=== PATIENT | female | born 1975 | race Caucasian/White ===

== ENCOUNTER 2016-10-03 18:04 | Emergency (ER) | payer OTHER ==
[~2016-10-03] VITALS: Ht 162.6 cm; Wt 54.4 kg
[2016-10-03 18:27] VITALS: BP 115/57
[2016-10-03 18:42] LABS: BILIRUBIN,URINE NEGATIVE (NEG); GLUCOSE,URINE NEGATIVE (NEG); NITRITE,URINE POSITIVE (NEG); PROTEIN,URINE 30 mg/dL (NEG-TRACE); UROBILINOGEN,URINE 0.2 mg/dL (0.2 mg/dL)
[2016-10-03 18:52] LABS: BACTERIA,URINE FEW /HPF (0-FEW); SQUAMOUS EPITHELIAL CELL,UR FEW /LPF; WBC,URINE 20-40 /HPF (0-4)
[2016-10-03] MEDS ORDERED: IBUPROFEN 800 MG TABLET. PO ONE (19:00)
[2016-10-03] MEDS ORDERED: ONDANSETRON ODT 4 MG TAB.RAPDIS. PO ONE (19:00)
--- NOTE | 2016-10-03 19:13 | PHYS DOC ---
Past Medical History Past Medical History: Hypothyroid Past Surgical History: Tubal ligation Alcohol Use: Occasionally Drug Use: None Adult General Chief Complaint Chief Complaint: FLU SYMPTOM HPI HPI Patient is a 41 year old female who presents with body aches, for 1-1/2 weeks, she stated for the last couple days she's had odorous urine and a fever yesterday. Patient denies any urgency frequency dysuria. She states she has previous remote history of a kidney stone. Review of Systems Review of Systems Constitutional: Body aches and fever Eyes: Denies change in visual acuity, redness, or eye pain [] HENT: Denies nasal congestion or sore throat [] Respiratory: Denies cough or shortness of breath [] Cardiovascular: No additional information not addressed in HPI [] GI: Denies abdominal pain, nausea, vomiting, bloody stools or diarrhea [] : Odorous urine Musculoskeletal: Denies back pain or joint pain [] Integument: Denies rash or skin lesions [] Neurologic: Denies headache, focal weakness or sensory changes [] Endocrine: Denies polyuria or polydipsia [] Current Medications Current Medications Current Medications Medications (Trade) Dose Ordered Sig/Manuel Start Time Stop Time Status Last Admin Dose Admin Ciprofloxacin (Cipro) 500 mg 1X ONCE 10/03/16 19:15 10/03/16 19:16 Ibuprofen (Motrin) 800 mg 1X ONCE 10/03/16 19:00 10/03/16 19:01 DC 10/03/16 19:03 800 MG Ondansetron HCl (Zofran Odt) 4 mg 1X ONCE 10/03/16 19:00 10/03/16 19:01 DC 10/03/16 19:03 4 MG Phenazopyridine HCl (Pyridium) 200 mg 1X ONCE 10/03/16 19:15 10/03/16 19:16 Allergies Allergies Allergies Coded Allergies Type Severity Reaction Last Updated Verified wheat Allergy Intermediate 08/31/15 Yes Physical Exam Physical Exam Constitutional: Well developed, well nourished, no acute distress, non-toxic appearance. [] HENT: Normocephalic, atraumatic, bilateral external ears normal, oropharynx moist, no oral exudates, nose normal. [] Eyes: PERRLA, EOMI, conjunctiva normal, no discharge. [] Neck: Normal range of motion, no tenderness, supple, no stridor. [] Cardiovascular:Heart rate regular rhythm, no murmur [] Lungs & Thorax: Bilateral breath sounds clear to auscultation [] Abdomen: Bowel sounds normal, soft, no tenderness, no masses, no pulsatile masses. [] Skin: Warm, dry, no erythema, no rash. [] Back: No tenderness,slight bilateral CVA tenderness. [] Extremities: No tenderness, no cyanosis, no clubbing, ROM intact, no edema. [] Neurologic: Alert and oriented X 3, normal motor function, normal sensory function, no focal deficits noted. [] Psychologic: Affect normal, judgement normal, mood normal. [] Current Patient Data Vital Signs Vital Signs Date Time Temp Pulse Resp B/P (MAP) Pulse Ox O2 Delivery O2 Flow Rate FiO2 10/03/16 18:27 98.4 98 16 115/57 (76) 99 Room Air 98.4 Lab Values Laboratory Tests Test 10/03/16 18:23 Urine Collection Type Unknown Urine Color Yellow Urine Clarity Cloudy Urine pH 6.0 Urine Specific [place] 1.020 Urine Protein 30 mg/dL (NEG-TRACE) Urine Glucose (UA) Negative mg/dL (NEG) Urine Ketones (Stick) 40 mg/dL (NEG) Urine Blood Large (NEG) Urine Nitrite Positive (NEG) Urine Bilirubin Negative (NEG) Urine Urobilinogen Dipstick 0.2 mg/dL (0.2 mg/dL) Urine Leukocyte Esterase Large (NEG) Urine RBC 1-2 /HPF (0-2) Urine WBC 20-40 /HPF (0-4) Urine Squamous Epithelial Cells Few /LPF Urine Bacteria Few /HPF (0-FEW) Urine Mucus Slight /LPF EKG EKG [] Radiology/Procedures Radiology/Procedures [] Course & Med Decision Making Course & Med Decision Making Pertinent Labs and Imaging studies reviewed. (See chart for details) Patient is in the ED with symptoms suspicious of kidney or urinary tract infection. Patient denies any hematuria though she states she is currently on her menstrual cycle. She has remote history of kidney stones. Her urine was positive for UTI. She was discharged on Cipro and Pyridium and Ultram. She was instructed to push fluids and follow-up with her own doctor in 1-2 weeks. Dragon Disclaimer Dragon Disclaimer This electronic medical record was generated, in whole or in part, using a voice recognition dictation system. Departure Departure Impression: Primary Impression: Pyelonephritis Disposition: 01 HOME, SELF-CARE Condition: STABLE Referrals: NO PCP (PCP) Follow-up with your doctor in one week Patient Instructions: Pyelonephritis, Adult Additional Instructions: You were seen for a kidney infection. Please complete your antibiotics. Push fluids. Take the prescribed pain medicine as needed. Follow-up with your primary care doctor in the next 7 days. Come back to the ED if symptoms worsen. Scripts Phenazopyridine Hcl (PYRIDIUM) 100 Mg Tablet 100 MG PO TID, #8 TAB Prov: RACHELE HEWITT APRN 10/03/16 Ondansetron (ZOFRAN ODT) 4 Mg Tab.rapdis 1 TAB SL Q8HRS, #15 TAB Prov: RACHELE HEWITT APRN 10/03/16 Tramadol Hcl (ULTRAM) 50 Mg Tablet 1 TAB PO Q6HRS, #30 TAB Prov: RACHELE HEWITT APRN 17 Ciprofloxacin Hcl (CIPRO) 500 Mg Tablet 1 TAB PO BID, #13 TAB Prov: RACHELE HEWITT APRN 10/03/16 RACHELE HEWITT APRN Oct 03, 2016 19:13
[2016-10-03] MEDS ORDERED: CIPROFLOXACIN HCL 250 MG TABLET. PO ONE (19:15)
[2016-10-03] MEDS ORDERED: PHENAZOPYRIDINE 200 MG TABLET. PO ONE (19:15)
[2016-10-03] MEDS ORDERED: TRAM-48 PO (19:19)
[2016-10-03] MEDS ORDERED: ONDA4TAB10 SL (19:19)
[2016-10-03] MEDS ORDERED: CIPR500T94 PO (19:19)
[2016-10-03] MEDS ORDERED: PHEN100T82 PO (19:19)
== END 2016-10-03 20:00 | disposition home or self-care (01) ==
LOC: ER 18:04
DX: N12 Tubulo-interstitial nephritis, not specified as acute or chronic (principal); E03.9 Hypothyroidism, unspecified; Z87.442 Personal history of urinary calculi; Z91.018 Allergy to other foods; Z98.51 Tubal ligation status
CPT/HCPCS: 81001; 87086; 99284; Q0162

== ENCOUNTER 2019-04-15 03:21 | Emergency (ER) | payer OTHER ==
[~2019-04-15 03:21] MED LIST: CIPR500T94 PO; ONDA4TAB10 SL; PHEN100T82 PO; TRAM-48 PO
--- NOTE | 2019-04-15 03:55 | PHYS DOC ---
Past Medical History Past Medical History: Hypothyroid Past Surgical History: Tubal ligation Alcohol Use: Occasionally Drug Use: None Adult General Chief Complaint Chief Complaint: ABDOMINAL PAIN HPI HPI 43-year-old female presents to emergency Department complaints of abdominal pain patient describes the pain suprapubically, right lower quadrant. She describes as achy sensation intermittently sharp. She states she's had some spotting on March 10 however has not had anything since. Last menstrual period March 21, 2019 she describes chills, nausea, no diarrhea, history of urinary tract infections currently on prophylactic therapy. She doesn't a history of ovary and cysts. She describes vaginal discharge on March 10 however has not had any since that time. Nothing makes her pain better. She states unable to sleep given the continued abdominal discomfort. Review of Systems Review of Systems Constitutional: Intermittent fevers, subjective At that Respiratory: Denies cough or shortness of breath [] Cardiovascular: No additional information not addressed in HPI [] GI: Positive abdominal pain, nausea, no vomiting, bloody stools or diarrhea [] : Positive dysuria, no hematuria [] Musculoskeletal: Denies back pain or joint pain [] Neurologic: Denies headache, focal weakness or sensory changes [] All other systems were reviewed and found to be within normal limits, except as documented in this note. Current Medications Current Medications Current Medications Medications (Trade) Dose Ordered Sig/[facility] Start Time Stop Time Status Last Admin Dose Admin Ceftriaxone Sodium (Rocephin) 1 gm 1X ONCE 04/15/19 05:15 04/15/19 05:16 DC 04/15/19 05:24 1 GM Ketorolac Tromethamine (Toradol 30mg Vial) 30 mg STK-MED ONCE 04/15/19 04:39 04/15/19 04:39 DC Ondansetron HCl (Zofran) 4 mg 1X ONCE 04/15/19 04:45 04/15/19 04:46 DC 04/15/19 04:40 4 MG Allergies Allergies Allergies Coded Allergies Type Severity Reaction Last Updated Verified wheat Allergy Intermediate 08/31/15 Yes Physical Exam Physical Exam Constitutional: Well developed, well nourished, no acute distress, non-toxic appearance. [] HENT: Normocephalic, atraumatic, bilateral external ears normal, oropharynx moist, no oral exudates, nose normal. [] Cardiovascular:Heart rate regular rhythm, no murmur [] Lungs & Thorax: Bilateral breath sounds clear to auscultation [] Abdomen: Bowel sounds normal, soft, tenderness appreciated suprapubically, no rebound tenderness, negative Rovsing sign, no masses, no pulsatile masses. [] Skin: Warm, dry, no erythema, no rash. [] Back: No tenderness, no CVA tenderness. [] Extremities: No tenderness, no edema. [] Neurologic: Alert and oriented X 3, no focal deficits noted. [] Psychologic: Affect normal, judgement normal, mood normal. [] Pelvic Exam: Foundry Tender present Abdomen: TTP bilateral lower quadrants, left > right External Genitalia: Normal Skin, no lesion appreciated Speculum: Normal vaginal mucosa, white/dark discharge, cervix very friable on exam Bimanual: No adnexal masses, bilateral adnexal tenderness left > right, No CMT Current Patient Data Vital Signs Vital Signs Date Time Temp Pulse Resp B/P (MAP) Pulse Ox O2 Delivery O2 Flow Rate FiO2 04/15/19 03:49 97.6 64 20 136/60 (85) 99 Room Air 97.6 Lab Values Laboratory Tests Test 04/15/19 04:05 04/15/19 04:10 04/15/19 04:12 Urine Collection Type Unknown Urine Color Yellow Urine Clarity Clear Urine pH 6.0 Urine Specific [place] 1.020 Urine Protein Negative mg/dL (NEG-TRACE) Urine Glucose (UA) Negative mg/dL (NEG) Urine Ketones (Stick) 15 mg/dL (NEG) Urine Blood Negative (NEG) Urine Nitrite Negative (NEG) Urine Bilirubin Negative (NEG) Urine Urobilinogen Dipstick 0.2 mg/dL (0.2 mg/dL) Urine Leukocyte Esterase Large (NEG) Urine RBC Occ /HPF (0-2) Urine WBC Tntc /HPF (0-4) Urine Squamous Epithelial Cells Many /LPF Urine Bacteria Many /HPF (0-FEW) Urine Mucus Mod /LPF White Blood Count 5.9 x10^3/uL (4.0-11.0) Red Blood Count 4.10 x10^6/uL (3.50-5.40) Hemoglobin 10.9 g/dL (12.0-15.5) L Hematocrit 33.7 % (36.0-47.0) L Mean Corpuscular Volume 82 fL (79-100) Mean Corpuscular Hemoglobin 27 pg (25-35) Mean Corpuscular Hemoglobin Concent 32 g/dL (31-37) Red Cell Distribution Width 15.1 % (11.5-14.5) H Platelet Count 343 x10^3/uL (140-400) Neutrophils (%) (Auto) 73 % (31-73) Lymphocytes (%) (Auto) 20 % (24-48) L Monocytes (%) (Auto) 7 % (0-9) Eosinophils (%) (Auto) 0 % (0-3) Basophils (%) (Auto) 0 % (0-3) Neutrophils # (Auto) 4.3 x10^3/uL (1.8-7.7) Lymphocytes # (Auto) 1.1 x10^3/uL (1.0-4.8) Monocytes # (Auto) 0.4 x10^3/uL (0.0-1.1) Eosinophils # (Auto) 0.0 x10^3/uL (0.0-0.7) Basophils # (Auto) 0.0 x10^3/uL (0.0-0.2) Sodium Level 138 mmol/L (136-145) Potassium Level 3.4 mmol/L (3.5-5.1) L Chloride Level 102 mmol/L (98-107) Carbon Dioxide Level 28 mmol/L (21-32) Anion Gap 8 (6-14) Blood Urea Nitrogen 10 mg/dL (7-20) Creatinine 0.8 mg/dL (0.6-1.0) Estimated GFR (Cockcroft-Gault) 78.3 BUN/Creatinine Ratio 13 (6-20) Glucose Level 89 mg/dL (70-99) Calcium Level 9.1 mg/dL (8.5-10.1) Total Bilirubin 0.5 mg/dL (0.2-1.0) Aspartate Amino Transferase (AST) 8 U/L (15-37) L Alanine Aminotransferase (ALT) 12 U/L (14-59) L Alkaline Phosphatase 59 U/L (46-116) Total Protein 7.9 g/dL (6.4-8.2) Albumin 4.5 g/dL (3.4-5.0) Albumin/Globulin Ratio 1.3 (1.0-1.7) POC Urine HCG, Qualitative Hcg negative (Negative) Laboratory Tests 04/15/19 04:10 Laboratory Tests 04/15/19 04:10 Microbiology 04/15/19 Wet Prep - Final, Complete Microbiology 04/15/19 Wet Prep - Final, Complete EKG EKG [] Radiology/Procedures Radiology/Procedures [][facility] [address] [place] [address] IMAGING REPORT Signed PATIENT: GEORGINA HALEOUNT: [id number] : 1975 LOCATION: ER AGE: 43 SEX: F EXAM STATUS: REG ER ORD. PHYSICIAN: JANNET TURNER MD REASON: bilateral lower quadrant tenderness on bimanual exam PROCEDURE: PELVIS W/TV Pelvic ultrasound with transvaginal: Reason for examination: Bilateral lower quadrant tenderness on bimanual exam. Transabdominally, the uterus appears somewhat heterogeneous and may contain a fibroid. Right ovary appears to measure 3 cm in greatest dimension and contains a subtle hypoechoic lesion possibly representing a hemorrhagic cyst measuring up to 2.4 cm in size. The left ovary is not seen. Transvaginally, the uterus appears to be normal in size measuring 9.8 x 6.9 x 7.1 cm in greatest dimension. There appears to be a hypoechoic lesion posteriorly in the body of the uterus measuring 4.2 x 3.4 x 3.9 cm in greatest dimension consistent with a fibroid. Additional smaller lesion is also present measuring approximately 1.9 cm in size. Nabothian cysts are seen in the cervix. The right ovary measures 4.0 x 3.5 x 2.6 cm in greatest dimension and shows good vascular flow. There is however a hypoechoic lesion consistent with a septated cyst measuring at least 3.2 cm in size. The left ovary measures 3.1 x 1.5 x 1.6 cm in greatest dimension with good vascular flow and no focal nodules. No free fluid is evident. IMPRESSION: Nodules in the posterior body of the uterus consistent with fibroids measuring 4.2 and 1.9 cm in size. Nabothian cysts. Probable septated cyst in the right ovary measuring 3.2 cm in size. Recommend follow-up. Electronically signed by: Kelli Vyas MD (04/15/2019 5:22 AM) [facility] DICTATED and SIGNED BY: KELLI VYAS MD DATE: 04/15/19 0522 Course & Med Decision Making Course & Med Decision Making Pertinent Labs and Imaging studies reviewed. (See chart for details) []43-year-old female presents to emergency Department complaints of abdominal pa in patient describes the pain suprapubically, right lower quadrant. She describes as achy sensation intermittently sharp. She states she's had some spotting on March 10 however has not had anything since. Last menstrual period March 21, 2019 she describes chills, nausea, no diarrhea, history of urinary tract infections currently on prophylactic therapy. She doesn't a history of ovary and cysts. She describes vaginal discharge on March 10 however has not had any since that time. Nothing makes her pain better. She states unable to sleep given the continued abdominal discomfort. Labs/Imaging reviewed UAD with UTI Wet Prep - evidence of BV GC/Chlamydia will be followed and if abnormal, patient will be notified Discussed findings with patient Toradol/Zofran with improved discomfort Recommend follow up with [facility] Recommend follow up with PCP as needed Discussed return precautions Dragon Disclaimer Dragon Disclaimer This electronic medical record was generated, in whole or in part, using a voice recognition dictation system. Departure Departure Impression: Primary Impression: Pelvic pain Additional Impressions: Bacterial vaginosis Hemorrhagic ovarian cyst Uterine fibroid Disposition: HOME, SELF-CARE Condition: STABLE Referrals: UNKNOWN PCP NAME (PCP) Patient Instructions: Bacterial Vaginosis, [id number], Ovarian Cyst, [id number], Pelvic Pain, Female, [id number], Urinary Tract Infection, [id number], Uterine Bleeding, Dysfunctional, [id number] Additional Instructions: Recommend follow up with PCP 3 - 5 days Return to the ER with worsening symptoms, intractable pain, fever, altered mental status Tylenol/Motrin as needed for pain Take antibiotics as directed US with evidence of hemorrhagic cyst, uterine fibroids - recommend follow up with [facility] Scripts Diclofenac Sodium (DICLOFENAC SODIUM) 50 Mg Tablet.dr 1 TAB PO BID for 4 Days, #8 TAB 1 Refill Prov: JANNET TURNER MD 04/15/19 Cephalexin (KEFLEX) 500 Mg Capsule 2 CAP PO Q12HR for 3 Days, #12 CAP Prov: JANNET TURNER MD 04/15/19 Metronidazole (FLAGYL) 500 Mg Tablet 1 TAB PO BID, #14 TAB Prov: JANNET TURNER MD 04/15/19 Problem Qualifiers Additional Impressions: Uterine fibroid Uterine leiomyoma location: unspecified location Qualified Codes: D25.9 - Leiomyoma of uterus, unspecified JANNET TURNER MD Apr 15, 2019 03:55
[2019-04-15 04:24] LABS: BASO % 0 % (0-3); EOS % 0 % (0-3); HEMATOCRIT 33.7 % (36.0-47.0); HEMOGLOBIN 10.9 g/dL (12.0-15.5); LYMPH # 1.1 x10^3/uL (1.0-4.8); LYMPH % 20 % (24-48); MEAN CORPUSCULAR HEMOGLOBIN 27 pg (25-35); MEAN CORPUSCULAR HGB CONC 32 g/dL (31-37); MEAN CORPUSCULAR VOLUME 82 fL (79-100); MONO # 0.4 x10^3/uL (0.0-1.1); MONO % 7 % (0-9); NEUT # 4.3 x10^3/uL (1.8-7.7); NEUT % 73 % (31-73); PLATELET COUNT 343 x10^3/uL (140-400); RED CELL DISTRIBUTION WIDTH 15.1 % (11.5-14.5); WHITE BLOOD COUNT 5.9 x10^3/uL (4.0-11.0)
[2019-04-15 04:27] LABS: BILIRUBIN,URINE NEGATIVE (NEG); CLARITY,URINE CLEAR; COLOR,URINE YELLOW; NITRITE,URINE NEGATIVE (NEG); PROTEIN,URINE NEGATIVE (NEG-TRACE); UROBILINOGEN,URINE 0.2 mg/dL (0.2 mg/dL)
[2019-04-15 04:37] LABS: ALBUMIN 4.5 g/dL (3.4-5.0); ALBUMIN/GLOBULIN RATIO 1.3 (1.0-1.7); CALCIUM 9.1 mg/dL (8.5-10.1); CREATININE 0.8 mg/dL (0.6-1.0); GFR 78.3; POTASSIUM 3.4 mmol/L (3.5-5.1); TOTAL BILIRUBIN 0.5 mg/dL (0.2-1.0); TOTAL PROTEIN 7.9 g/dL (6.4-8.2)
[2019-04-15] MEDS ORDERED: KETOROLAC 30 MG/ML VIAL. ONE (04:39)
[2019-04-15 04:41] LABS: BACTERIA,URINE MANY /HPF (0-FEW); RBC,URINE OCC /HPF (0-2); SQUAMOUS EPITHELIAL CELL,UR MANY /LPF; WBC,URINE TNTC /HPF (0-4)
[2019-04-15] MEDS ORDERED: ONDANSETRON PF 4 MG/2 ML VIAL. IV ONE (04:45)
[2019-04-15] MEDS ORDERED: KETOROLAC 30 MG/ML VIAL. IVP ONE (04:45)
[2019-04-15] MEDS ORDERED: cefTRIAXone IV Push 1 GM VIAL. IVP ONE (05:15)
--- NOTE | 2019-04-15 05:25 | RAD ---
Pelvic ultrasound with transvaginal: Reason for examination: Bilateral lower quadrant tenderness on bimanual exam. Transabdominally, the uterus appears somewhat heterogeneous and may contain a fibroid. Right ovary appears to measure 3 cm in greatest dimension and contains a subtle hypoechoic lesion possibly representing a hemorrhagic cyst measuring up to 2.4 cm in size. The left ovary is not seen. Transvaginally, the uterus appears to be normal in size measuring 9.8 x 6.9 x 7.1 cm in greatest dimension. There appears to be a hypoechoic lesion posteriorly in the body of the uterus measuring 4.2 x 3.4 x 3.9 cm in greatest dimension consistent with a fibroid. Additional smaller lesion is also present measuring approximately 1.9 cm in size. Nabothian cysts are seen in the cervix. The right ovary measures 4.0 x 3.5 x 2.6 cm in greatest dimension and shows good vascular flow. There is however a hypoechoic lesion consistent with a septated cyst measuring at least 3.2 cm in size. The left ovary measures 3.1 x 1.5 x 1.6 cm in greatest dimension with good vascular flow and no focal nodules. No free fluid is evident. IMPRESSION: Nodules in the posterior body of the uterus consistent with fibroids measuring 4.2 and 1.9 cm in size. Nabothian cysts. Probable septated cyst in the right ovary measuring 3.2 cm in size. Recommend follow-up. Electronically signed by: Kelli Dunham MD (04/15/2019 5:22 AM) [facility]
[2019-04-15] MEDS ORDERED: CEPH-264 PO (05:36)
[2019-04-15] MEDS ORDERED: DICL50TA4 PO (05:36)
[2019-04-15] MEDS ORDERED: METR500T PO (05:36)
[2019-04-15 05:42] VITALS: BP 106/64
[2019-04-16 20:08] LABS: GC PROBE Negative (Negative)
== END 2019-04-15 06:05 | disposition home or self-care (01) ==
LOC: ER 03:21
DX: N83.201 Unspecified ovarian cyst, right side (principal); D25.9 Leiomyoma of uterus, unspecified; N76.0 Acute vaginitis; B96.89 Other specified bacterial agents as the cause of diseases classified elsewhere; R10.2 Pelvic and perineal pain; E03.9 Hypothyroidism, unspecified; Z98.51 Tubal ligation status; Z91.018 Allergy to other foods
CPT/HCPCS: 36415; 76830; 76856; 80053; 81001; 81025; 85025; 87086; 87491; 87591; 96374; 96375; 99285; J0696; J1885; J2405; Q0111

== ENCOUNTER 2021-03-08 16:12 | Emergency (ER) | payer OTHER ==
[~2021-03-08] VITALS: Ht 162.6 cm; Wt 53.0 kg
[~2021-03-08 16:12] MED LIST changes: +CEPH-264 PO; +DICL50TA4 PO; +METR500T PO
[2021-03-08 17:30] VITALS: BP 138/75
[2021-03-08] MEDS ORDERED: cefTRIAXone IM 500 MG VIAL. IM ONE (17:30)
[2021-03-08] MEDS ORDERED: metroNIDAZOLE 500 MG TABLET PO ONE (17:30)
[2021-03-08] MEDS ORDERED: DOXYCYCLINE HYCLATE 100 MG TABLET PO ONE (17:30)
[2021-03-08 17:32] LABS: BILIRUBIN,URINE NEGATIVE (NEG); CLARITY,URINE CLEAR; COLOR,URINE YELLOW; NITRITE,URINE NEGATIVE (NEG); PH,URINE 6.5 (<5.0-8.0); PROTEIN,URINE NEGATIVE (NEG-TRACE); UROBILINOGEN,URINE 0.2 mg/dL (0.2 mg/dL)
[2021-03-08 17:39] LABS: BACTERIA,URINE 0 /HPF (0-FEW); RBC,URINE 0 /HPF (0-2); WBC,URINE OCC /HPF (0-4)
[2021-03-08] MEDS ORDERED: LIDOCAINE 2% TOPICAL JELLY 5GM TUBE. TP STA (17:46)
[2021-03-08] MEDS ORDERED: LIDO30CR2 TP (18:42)
[2021-03-08] MEDS ORDERED: METR-34 PO (18:42)
[2021-03-08] MEDS ORDERED: DOXY100T PO (18:42)
--- NOTE | 2021-03-08 18:42 | PHYS DOC ---
Past Medical History Past Medical History: Hypothyroid Additional Past Medical Histor: vaginosis, Sjorgen's, pectus excavatum Past Surgical History: Tubal ligation, Other Additional Past Surgical Histo: bar for pectus excavatum Smoking Status: Never Smoker Alcohol Use: Occasionally Drug Use: None General Adult EDM: Chief Complaint: PAIN ON URINATION HPI: HPI: Patient is a 45 year old female with a history of hypothyroidism presenting to the ED today complaining of burning pain around her exterior genitalia when she voids, symptoms began 2 weeks ago. Patient also reports malodorous vaginal discharge. She states she has been in a relationship for 5 years but is suspiciously the significant male partner could be having an affair. Denies any chance she is . Denies any abdominal pain, nausea, vomiting. Denies any chance she is . Review of Systems: Review of Systems: Constitutional: Denies fever or chills. [] GI: Denies abdominal pain, nausea, vomiting, bloody stools or diarrhea. [] : Reports pain around the genitalia when voiding, reports vaginal discharge Musculoskeletal: Denies back pain or joint pain. [] Integument: Denies rash. [] Neurologic: Denies headache, focal weakness or sensory changes. [] Psychiatric: Denies depression or anxiety. [] Heart Score: C/O Chest Pain: N/A Risk Factors: Risk Factors: DM, Current or recent (<one month) smoker, HTN, HLP, family history of CAD, obesity. Risk Scores: Score 0 - 3: 2.5% MACE over next 6 weeks - Discharge Home Score 4 - 6: 20.3% MACE over next 6 weeks - Admit for Clinical Observation Score 7 - 10: 72.7% MACE over next 6 weeks - Early Invasive Strategies Current Medications: Current Medications Medications (Trade) Dose Ordered Sig/Manuel Start Time Stop Time Status Last Admin Dose Admin Ceftriaxone Sodium (Rocephin Im) 500 mg 1X ONCE 03/08/21 17:30 03/08/21 17:31 DC 03/08/21 17:56 500 MG Doxycycline Hyclate (Vibra-Tab) 100 mg 1X ONCE 03/08/21 17:30 03/08/21 17:31 DC 03/08/21 17:56 100 MG Lidocaine HCl (Xylocaine 2% Topical 5gm Tube) 1 uli 1X STAT 03/08/21 17:46 03/08/21 17:49 DC 03/08/21 18:05 1 ULI Metronidazole (Flagyl) 2,000 mg 1X ONCE 03/08/21 17:30 03/08/21 17:31 DC 03/08/21 17:56 2,000 MG Allergies: Allergies: Allergies Coded Allergies Type Severity Reaction Last Updated Verified oxycodone Allergy Intermediate rash 03/08/21 Yes sulfamethoxazole Allergy Intermediate rash 03/08/21 Yes trimethoprim Allergy Intermediate rash 03/08/21 Yes wheat Allergy Intermediate 08/31/15 Yes Physical Exam: PE: Constitutional: Well developed, well nourished, no acute distress, non-toxic appearance. [] Abdomen: Bowel sounds normal, soft, no tenderness, no masses, no pulsatile masses. [] Pelvic exam External pelvic has superficial skin tears on the right side, no erythema. Cervix is visualized, erythematous noted on the cervix, trace amount of white vaginal discharge, no CMT, no adnexal tenderness Skin: Warm, dry, no erythema, no rash. [] Back: No tenderness, no CVA tenderness. [] Extremities: No tenderness, no cyanosis, no clubbing, ROM intact, no edema. [] Neurologic: Alert and oriented X 3, normal motor function, normal sensory function, no focal deficits noted. [] Psychologic: Affect normal, judgement normal, mood normal. [] Current Patient Data: Labs: Laboratory Tests Test 03/08/21 17:10 Urine Collection Type Unknown Urine Color Yellow Urine Clarity Clear Urine pH 6.5 (<5.0-8.0) Urine Specific [place] <=1.005 (1.000-1.030) Urine Protein Negative mg/dL (NEG-TRACE) Urine Glucose (UA) Negative mg/dL (NEG) Urine Ketones (Stick) Negative mg/dL (NEG) Urine Blood Negative (NEG) Urine Nitrite Negative (NEG) Urine Bilirubin Negative (NEG) Urine Urobilinogen Dipstick 0.2 mg/dL (0.2 mg/dL) Urine Leukocyte Esterase Negative (NEG) Urine RBC 0 /HPF (0-2) Urine WBC Occ /HPF (0-4) Urine Squamous Epithelial Cells Mod /LPF Urine Bacteria 0 /HPF (0-FEW) Microbiology 03/08/21 Wet Prep - Final, Complete Vital Signs: Vital Signs Date Time Temp Pulse Resp B/P (MAP) Pulse Ox O2 Delivery O2 Flow Rate FiO2 03/08/21 17:30 98.0 58 16 138/75 (96) 95 Room Air 98.0 EKG: EKG: [] Radiology/Procedures: Radiology/Procedures: [] Course & Med Decision Making: Course & Med Decision Making Pertinent Labs and Imaging studies reviewed. (See chart for details) This is a 45-year-old female patient presented to the ED today with complaints of burning around her exterior vaginal area when voiding, vaginal discharge and concern for STDs. Negative urine hCG, UA negative for infection. Wet prep noted for BV. Patient was treated prophylaxis for STDs in the ED and discharged on doxycycline while waiting for her chlamydia and gonorrhea swabs. She was instructed not to have intercourse for a week, she was encouraged to talk to the partner and let him get treated as well. Dragon Disclaimer: Dragon Disclaimer: This electronic medical record was generated, in whole or in part, using a voice recognition dictation system. Departure Departure Impression: Primary Impression: Bacterial vaginosis Additional Impression: Concern about STD in female without diagnosis Disposition: 01 HOME / SELF CARE / HOMELESS Condition: STABLE Referrals: MARYJANE GUTIERREZ MD (PCP) follow up next week Patient Instructions: Bacterial Vaginosis, [id number], Sexually Transmitted Disease Additional Instructions: You were evaluated in the emergency room, your urine is negative for infection. You were noted to have bacterial vaginosis. We put you in antibiotics for this. You also have prescription for doxycycline to complete your STD treatment ensure you complete them. Please do not have any intercourse for 1 week. Use protection anytime you have intercourse. Scripts Lidocaine/Prilocaine (LIDOCAINE-PRILOCAINE CREAM) 30 Gm Cream..g. 1 ULI TP UD, #30 GM 1 Refill apply to exterior vaginal area Prov: RACHELE HEWITT WAITER/[employer] 03/08/21 Doxycycline Hyclate (DOXYCYCLINE HYCLATE) 100 Mg Tablet 1 TAB PO BID, #14 TAB Prov: RACHELE HEWITT WA[employer] 03/08/21 Metronidazole (METRONIDAZOLE) 500 Mg Tablet 1 TAB PO BID, #10 TAB 0 Refills Prov: RACHELE HEWITT WA[employer] 03/08/21 RACHELE HEWITT WAITER/[employer] Mar 08, 2021 18:42
[2021-03-09 17:56] LABS: GC PROBE Negative (Negative)
== END 2021-03-08 18:52 | disposition home or self-care (01) ==
LOC: ER 16:12
DX: N76.0 Acute vaginitis (principal); B96.89 Other specified bacterial agents as the cause of diseases classified elsewhere; E03.9 Hypothyroidism, unspecified; Z98.51 Tubal ligation status; Z88.1 Allergy status to other antibiotic agents; Z88.2 Allergy status to sulfonamides; Z88.5 Allergy status to narcotic agent; Z91.018 Allergy to other foods
CPT/HCPCS: 81001; 87491; 87591; 96372; 99284; J0696; Q0111